=== PATIENT | female | born 2000 | race Hispanic/Latino ===

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

== ENCOUNTER 2022-12-08 21:57 | Emergency (ER) | payer OTHER ==
[2022-12-08] MEDS ORDERED: Ketorolac Tromethamine 30 MG/ML VIAL ONE (22:52)
[2022-12-08] MEDS ORDERED: Acetaminophen 500 MG TAB ONE (22:52)
[2022-12-08] MEDS ORDERED: Ondansetron PF 4 MG/2 ML Vial ONE (22:52)
[2022-12-08 23:39] LABS: SARS-CoV-2 NAA Rapid Test Not Detected (NotDetected)
== END 2022-12-09 00:08 | disposition home or self-care (01) ==
LOC: ERS 21:57
DX: J06.9 Acute upper respiratory infection, unspecified (principal); R50.9 Fever, unspecified; Z20.822 Contact with and (suspected) exposure to COVID-19
CPT/HCPCS: 87081; 87430; 96361; 96374; 96375; J1885; J2405